=== PATIENT | female | born 1940 | race Caucasian/White ===

== ENCOUNTER → 2018-12-12 | Outpatient (CLI) | payer OTHER ==
[~2018-12-12] MED LIST: ALLOPURINOL; ALLOPURINOL 30300 M1; ATENOLOL 100MG100 M2; ATENOLOL PO; CALCITRIOL0.25 MCG PO; CENTRUM SILVER1 EAC4 PO; COUMADIN 4 MG TA4 M1; FOLIC ACID0.8 MG PO; FUROSEMIDE; FUROSEMIDE 40 M40 M1 PO; HYDROCODONE-AP1 EAC6 PO; K-DUR 20 MEQ T20 MEQ PO; KEFLEX500 MG PO; LIPITOR10 MG PO; NORCO 5-325 TA1 EAC1 PO; NORCO 5-325 TA1 EACH OR; NORCO 5-325 TA1 EACH PO; ONDANSETRON HCL4 M2 PO; PERCOCET 5-3251 EACH PO; PREDNISONE; PRILOSEC 20 MG20 MG PO; VASOTEC; VERAPAMIL E.R240 M1 PO; VICODIN; VITAMIN D3400 UNIT PO; VITAMINC500 PO; ZOLOFT50 MG PO; [UNRECOGNIZED DRUG - CODE]
== END ==
LOC: M.RAD 14:48
DX: M47.816 Spondylosis without myelopathy or radiculopathy, lumbar region (principal); M48.061 Spinal stenosis, lumbar region without neurogenic claudication; M25.78 Osteophyte, vertebrae; W19.XXXA Unspecified fall, initial encounter; Y93.89 Activity, other specified; Y92.89 Other specified places as the place of occurrence of the external cause; Y99.8 Other external cause status

== ENCOUNTER → 2019-03-03 | Outpatient (CLI) | payer OTHER | LOC: M.MRI 16:09 | DX: M47.816 Spondylosis without myelopathy or radiculopathy, lumbar region (principal); M48.061 Spinal stenosis, lumbar region without neurogenic claudication; M25.78 Osteophyte, vertebrae; M51.26 Other intervertebral disc displacement, lumbar region; M51.27 Other intervertebral disc displacement, lumbosacral region ==

== ENCOUNTER → 2019-03-11 | Outpatient (CLI) | payer OTHER | LOC: M.RAD 15:20 | DX: J43.9 Emphysema, unspecified (principal); N83.8 Other noninflammatory disorders of ovary, fallopian tube and broad ligament; M54.42 Lumbago with sciatica, left side; M54.41 Lumbago with sciatica, right side; G89.29 Other chronic pain ==

== ENCOUNTER → 2019-03-13 | Outpatient (CLI) | payer OTHER | LOC: M.ULTRA 03-12 15:00 | DX: R19.00 Intra-abdominal and pelvic swelling, mass and lump, unspecified site (principal) ==

== ENCOUNTER → 2019-05-27 | Outpatient (CLI) | payer OTHER ==
[2019-05-27 15:01] LABS: ABSOLUTE BASOPHILS 0.1 thou/uL (0.0-0.2); ABSOLUTE EOSINOPHILS 0.1 thou/uL (0.0-0.7); ABSOLUTE LYMPHOCYTES 1.9 thou/uL (0.8-5.3); ABSOLUTE MONOCYTES 0.6 thou/uL (0.0-1.2); ABSOLUTE NEUTROPHILS 6.4 thou/uL (1.6-8.1); BASOPHILS 1.2 %; EOSINOPHILS 0.8 %; HEMATOCRIT 33.3 % (37.0-47.0); HEMOGLOBIN 11.3 gm/dL (12.0-15.0); LYMPHOCYTES 20.4 %; MCH 31.2 pg (26.0-34.0); MCHC 33.9 g/dL (28.0-37.0); MCV 91.9 fL (80.0-100.0); MONOCYTES 6.8 %; NUCLEATED RBCS 0 /100WBC; PLATELET COUNT* 221 thou/uL (150-400); POLYS 70.8 %; RBC 3.62 mil/uL (4.20-5.00); RDW-CV 14.5 % (10.5-14.5); WBC 9.1 thou/uL (4.0-11.0)
[2019-05-27 15:17] LABS: ALBUMIN 3.7 g/dL (3.4-5.0); CALCIUM 8.3 mg/dL (8.5-10.1); CREATININE 1.8 mg/dL (0.6-1.3); POTASSIUM 4.1 mmol/L (3.5-5.1); TOTAL BILIRUBIN 0.3 mg/dL (<0.1-1.0); TOTAL PROTEIN 6.5 g/dL (6.4-8.2)
[2019-05-27 15:31] LABS: CALCIUM 8.1 mg/dL (8.5-10.1); CREATININE 1.8 mg/dL (0.6-1.3); PHOSPHORUS* 3.8 mg/dL (2.5-4.9)
== END ==
LOC: M.LAB 14:41
PROVIDERS: Internal Medicine
DX: R79.9 Abnormal finding of blood chemistry, unspecified (principal)

== ENCOUNTER 2019-06-15 23:37 | Inpatient (IN) | payer OTHER ==
[~2019-06-15] VITALS: Ht 170.2 cm; Wt 93.4 kg
[~2019-06-15 23:37] MED LIST changes: -ALLOPURINOL 30300 M1; +ALLOPURINOL 30300 M1 PO; -ATENOLOL 100MG100 M2; +ATENOLOL 100MG100 M2 PO; -FUROSEMIDE; +LASIX 40 MG TAB40 MG PO; +NORCO 5-325 TA1 EAC2 PO; -NORCO 5-325 TA1 EACH PO; -PRILOSEC 20 MG20 MG PO; +PRILOSEC OTC20 MG PO; +SERTRALINE HCL50 MG PO; +VITAMIN D32000 UNI2 PO; -VITAMIN D3400 UNIT PO; -ZOLOFT50 MG PO
[2019-06-15 23:45] VITALS: BP 231/88
[2019-06-16 01:37] LABS: ABSOLUTE BASOPHILS 0.1 thou/uL (0.0-0.2); ABSOLUTE EOSINOPHILS 0.1 thou/uL (0.0-0.7); ABSOLUTE LYMPHOCYTES 2.1 thou/uL (0.8-5.3); ABSOLUTE MONOCYTES 0.8 thou/uL (0.0-1.2); ABSOLUTE NEUTROPHILS 6.6 thou/uL (1.6-8.1); BASOPHILS 0.8 %; EOSINOPHILS 0.7 %; HEMATOCRIT 33.3 % (37.0-47.0); HEMOGLOBIN 11.1 gm/dL (12.0-15.0); LYMPHOCYTES 21.5 %; MCH 31.1 pg (26.0-34.0); MCHC 33.4 g/dL (28.0-37.0); MCV 93.2 fL (80.0-100.0); MONOCYTES 8.3 %; MPV 9.3 fl. (7.2-11.1); NUCLEATED RBCS 0 /100WBC; PLATELET COUNT* 210 thou/uL (150-400); POLYS 68.7 %; RBC 3.58 mil/uL (4.20-5.00); WBC 9.6 thou/uL (4.0-11.0)
[2019-06-16 02:14] LABS: CALCIUM 8.4 mg/dL (8.5-10.1); CREATININE 1.5 mg/dL (0.6-1.3); POTASSIUM 5.3 mmol/L (3.5-5.1)
[2019-06-16 02:20] LABS: ALBUMIN 3.7 g/dL (3.4-5.0); MAGNESIUM 1.3 mg/dL (1.8-2.4); TOTAL BILIRUBIN 0.3 mg/dL (<0.1-1.0); TOTAL PROTEIN 6.7 g/dL (6.4-8.2)
[2019-06-16 03:09] LABS: URINE BILIRUBIN NEGATIVE (Negative); URINE BLOOD TRACE (Negative); URINE CLARITY CLEAR; URINE COLOR YELLOW; URINE GLUCOSE-RANDOM NEGATIVE (Negative); URINE KETONES NEGATIVE (Negative); URINE PROTEIN NEGATIVE (Negative); URINE UROBILINOGEN 0.2 E.U./dl (0.2-1.0)
[2019-06-16 03:10] LABS: URINE LEUKOCYTES-REFLEX 3+ (Negative); URINE NITRITE-REFLEX POSITIVE (Negative)
[2019-06-16 03:36] LABS: SQUAMOUS 4-10 Moderate /LPF (0-3)
[2019-06-16 03:37] LABS: BACTERIA-REFLEX >30 Many /HPF (None Seen); COARSE GRANULAR CASTS 0-3 Few /LPF (None Seen); CRYSTALS None Seen /LPF (None Seen); URINE RBC 3-10 Few /HPF (0-2); URINE WBC-REFLEX >25 Many /HPF (0-5)
[2019-06-16 07:13] VITALS: BP 177/60
--- NOTE | 2019-06-16 08:43 | NUR ---
SPOKE TO DR IRELAND, REGARDING PTS BP, ORDERS RECEIVED, CONTINUE FLUIDS DIRECTED, PT TO BE SEEN BY DR SALDAÑA TODAY
--- NOTE | 2019-06-16 08:51 | NUR ---
TERESA NOTIFIED UPON PT RETURN FROM CT. PT WAS NOT CONNECTED TO MONITOR SHE WAS NOT PRIOR TO CT
[2019-06-16 09:12] VITALS: BP 177/60
[2019-06-16 09:30] VITALS: BP 190/69
--- NOTE | 2019-06-16 11:45 | EKG ---
[place] [address] ELECTROCARDIOGRAM REPORT Name: GEOVANY LOW Room: [address] IN .R.#: [id number] Admission: 06/16/19 Attend Phys: Bryant Gordillo, Discharge: Date of : 38 Date of Service: 06/16/19 0403 Report #: [id number] THIS REPORT FOR: //name// [facility] ED Test Date: 2019-06-16 Test Time: 04:03:10 Pat Name: GEOVANY LOW Department: Room: [facility] Gender: F Card Cleaner: MR : 1940 Requested By: Karly Vásquez Order Number: [id number] MD: Alexandro oRdriguez Measurements Intervals [place] Rate: 74 P: 90 TN: 144 QRS: 90 QRSD: 80 T: 51 QT: 351 QTc: 390 Interpretive Statements Sinus rhythm Consecutive pac's Borderline right axis deviation Compared to ECG 11/02/2010 20:23:56 Atrial premature complex(es) now present Electronically Signed On 06-16-2019 11:44:17 PLAYGROUND AIDE by Alexandro Rodriguez [email or web address] <ELECTRONICALLY SIGNED> By: Alexandro Rodriguez MD, [facility] 06/16/19 1144 0403 0403 Alexandro Rodriguez MD, [facility] /EPI
--- NOTE | 2019-06-16 15:17 | NUR ---
ASSESSMENT COMPLETE. PT ALERT AND ORIENTED X4, FORGETFUL AT TIMES. PT ADMITTED WITH UTI, DIARRHEA AND HYPOMAGNESIUM. MAG REPLACED IV, NOW 1.8. IV ROCEPHIN STARTED FOR UTI. GI CONSULT FOR DIARRHEA. ECHO ORDERED. PATIENT HAS HTN, PRN HYDRALAZINE GIVEN NEEDED, PROVIDER AWARE. PT IS ON ROOM AIR, VSS. IV FLUIDS INFUSING. PT UP IN CHAIR MOST OF THE DAY. TOLERATING CLEAR LIQUIDS, REQUESTING REAL FOOD. PT HAS NO OTHER CONCERNS AT THIS TIME. FALL RISK, BED/CHAIR ALARM ON. CALL LIGHT WITHIN REACH, WILL CONTINUE PLAN OF CARE
[2019-06-16 15:30] VITALS: BP 166/56
--- NOTE | 2019-06-16 16:05 | NUR ---
CM ASSESSMENT: PT LIVES ALONE. SHE IS INDEPENDENT WITH ALL ADLS. SHE USES A WALKER. DOES HER OWN CLEANING,COOKING. SHE PAYS A FRIEND TO TAKE HER TO THE STORE ETC. DENIES NEED FOR HH. CM WILL CONTINUE TO FOLLOW
[2019-06-16 22:52] VITALS: BP 166/67
--- NOTE | 2019-06-17 05:06 | NUR ---
PATIENT SLEPT WELL DURING THIS SHIFT. PT USES CALL LIGHT APPROPRIATELY FOR ASSISTANCE TO BATHROOM. PT UP WITH USE OF WALKER AND CLOSE STANDBY. PT VOIDS YELLOW URINE. PT SAT IN CHAIR AND WATCHED TV DURING THE NIGHT. PT HAS SCHEDULED HYDROCODONE AT HS; DENIES PAIN THE REST OF THE SHIFT. FREQUENTLY USED ITEMS AND CALL LIGHT WITHIN REACH. SIDERAILS UPX3 AND BED ALARM ON. WILL CONTINUE TO MONITOR.
[2019-06-17 08:05] VITALS: BP 181/69
[2019-06-17] MEDS ORDERED: CEFDINIR300 MG PO (10:43)
[2019-06-17] MEDS ORDERED: NORVASC5 MG PO (10:44)
[2019-06-17] MEDS ORDERED: HYDROCHLOROTHIA25 M2 PO (10:45)
[2019-06-17 12:26] VITALS: BP 181/69
--- NOTE | 2019-06-17 14:58 | NUR ---
PATIENT DISCHARGED TO HOME. DISCHARGE PAPERS REVIEWED AND SIGNED. PATIENT REFUSED NEED FOR HOME HEALTH. PRESCRIPTIONS AND INFORMATION SHEETS GIVEN. PATIENT PACKED OWN BELONGINGS. PATIENT TAKEN BY WHEELCHAIR TO EXIT. LEFT WITH FRIEND.
--- NOTE | 2019-06-18 14:36 | 2DMMODE ---
[place] [address] 2 D/M-MODE ECHOCARDIOGRAM Name: MARANDAGEOVANY J Room: [address] IN .R.#: [id number] Admission: 06/16/19 Attend Phys: Bryant Gordillo, Discharge: 06/17/19 Date of : 38 Date of Service: 06/18/19 1435 Report #: [id number] THIS REPORT FOR: cc: Dutch Flanagan MD, David L. MD Liston, Michael J. MD [facility] ~ ADDENDUM APPROVED REPORT Study performed: 06/16/2019 14:56:18 EXAM: Comprehensive 2D, Doppler, and color-flow Echocardiogram Patient Location: In-Patient Room #: [facility] Status: routine BSA: 2.04 HR: 60 bpm BP: 190/69 mmHg Rhythm: NSR Other Information Study Quality: Good Indications Hypertension/HDD 2D Dimensions IVSd: 11.90 (7-11mm) LVDd: 44.70 mm PWd: 9.50 (7-11mm) Ascending Ao: 35.30 (22-36mm) LVDs: 21.80 (25-40mm) Aortic Root: 32.70 mm Volumes Left Atrial Volume (Systole) LA ESV Index: 32.90 mL/m2 Aortic Valve AO Peak Gr.: 12.00 mmHg AO Mean Gr.: 6.40 mmHg MEMO (VTI): 2.36 cm2 Left Ventricle The left ventricle is normal size. There is normal LV segmental wall motion. Mild concentric left ventricular [place] [address] 2 D/M-MODE ECHOCARDIOGRAM Name: MARANDAGEOVANY J Room: [address] IN .R.#: [id number] Admission: 06/16/19 Attend Phys: Bryant Gordillo, Discharge: 06/17/19 Date of : 38 Date of Service: 06/18/19 1435 Report #: [id number] ventricular systolic function is normal. LVEF is 60-65%. Transmitral Doppler flow pattern suggests restrictive physiology. Right Ventricle The right ventricle is normal size. The right ventricular systolic function is normal. Atria The left atrium size is normal. The right atrium size is normal. Aortic Valve The aortic valve is normal in structure. Mild aortic regurgitation. There is no aortic valvular stenosis. Mitral Valve The mitral valve is normal in structure. There is no mitral valve regurgitation noted. No evidence of mitral valve stenosis. Tricuspid Valve The tricuspid valve is normal in structure. Trace tricuspid regurgitation. Unable to assess PA pressure. Pulmonic Valve The pulmonary valve is normal in structure. There is no pulmonic valvular regurgitation. Great Vessels The aortic root is normal in size. IVC is normal in size and collapses >50% with inspiration. Pericardium There is no pericardial effusion. <Conclusion> The left ventricle is normal size. Mild concentric left ventricular hypertrophy. Left ventricular systolic function is normal. LVEF is 60-65%. Transmitral Doppler flow pattern suggests restrictive physiology. Mild aortic [place] [address] 2 D/M-MODE ECHOCARDIOGRAM Name: MARANDAGEOVANY Room: [address]#: [id number] Admission: 06/16/19 Attend Phys: Bryant Gordillo, Discharge: 06/17/19 Date of : 38 Date of Service: 06/18/19 1435 Report #: [id number] Trace tricuspid regurgitation. IVC is normal in size and collapses >50% with inspiration. <ELECTRONICALLY SIGNED> By: Grant Cantrell MD, FACC 06/18/19 143 34 34 Grant Cantrell MD, FACC /INF
== END 2019-06-17 14:40 | disposition home or self-care (01) | DRG 690 ==
LOC: M.ERS 23:37 → M.3W 06-16 04:52 → M.TBA-ER 06-16 04:52 → M.3W 06-16 09:07
PROVIDERS: Emergency Medicine; ADMIT Internal Medicine
DX: N30.00 Acute cystitis without hematuria (principal); I16.9 Hypertensive crisis, unspecified; A08.4 Viral intestinal infection, unspecified; K80.20 Calculus of gallbladder without cholecystitis without obstruction; I10 Essential (primary) hypertension; D64.9 Anemia, unspecified; M10.9 Gout, unspecified; R32 Unspecified urinary incontinence; Z96.651 Presence of right artificial knee joint; E83.42 Hypomagnesemia; R11.13 Vomiting of fecal matter; N83.201 Unspecified ovarian cyst, right side; M54.9 Dorsalgia, unspecified; G89.29 Other chronic pain; F17.210 Nicotine dependence, cigarettes, uncomplicated; K86.89 Other specified diseases of pancreas; N83.202 Unspecified ovarian cyst, left side; Z86.010 Personal history of colon polyps; Z79.899 Other long term (current) drug therapy; Z88.7 Allergy status to serum and vaccine; Z88.8 Allergy status to other drugs, medicaments and biological substances; Z72.89 Other problems related to lifestyle

== ENCOUNTER 2019-12-24 15:50 | Inpatient (IN) | payer OTHER ==
[~2019-12-24] VITALS: Ht 170.2 cm; Wt 93.4 kg
[~2019-12-24 15:50] MED LIST changes: +CEFDINIR300 MG PO; +HYDROCHLOROTHIA25 M2 PO; +NORVASC5 MG PO
[2019-12-24 16:03] VITALS: BP 213/90
[2019-12-24 16:29] LABS: ABSOLUTE EOSINOPHILS 0.1 thou/uL (0.0-0.7); ABSOLUTE LYMPHOCYTES 1.4 thou/uL (0.8-5.3); ABSOLUTE MONOCYTES 0.5 thou/uL (0.0-1.2); ABSOLUTE NEUTROPHILS 6.8 thou/uL (1.6-8.1); BASOPHILS 0.5 %; EOSINOPHILS 0.7 %; HEMATOCRIT 35.8 % (37.0-47.0); LYMPHOCYTES 16.2 %; MCH 30.7 pg (26.0-34.0); MCHC 33.5 g/dL (28.0-37.0); MCV 91.8 fL (80.0-100.0); MONOCYTES 5.3 %; MPV 8.7 fl. (7.2-11.1); NUCLEATED RBCS 0 /100WBC; PLATELET COUNT* 227 thou/uL (150-400); POLYS 77.3 %; RBC 3.89 mil/uL (4.20-5.00); RDW-CV 14.3 % (10.5-14.5); WBC 8.8 thou/uL (4.0-11.0)
[2019-12-24 16:33] LABS: CALCIUM 8.2 mg/dL (8.5-10.1); CREATININE 1.6 mg/dL (0.6-1.3); POTASSIUM 4.5 mmol/L (3.5-5.1)
[2019-12-24 16:38] LABS: ALBUMIN 3.8 g/dL (3.4-5.0); TOTAL BILIRUBIN 0.4 mg/dL (<0.1-1.0); TOTAL PROTEIN 6.9 g/dL (6.4-8.2)
[2019-12-24 16:41] LABS: APTT 26.7 Seconds (25.0-31.3); PROTIME 10.3 Seconds (9.20-11.50)
[2019-12-24 19:57] VITALS: BP 160/98
[2019-12-24 20:30] VITALS: BP 224/96
[2019-12-25] VITALS: BP 132/72
[2019-12-25 04:00] VITALS: BP 198/64
[2019-12-25 05:12] LABS: HEMOGLOBIN 10.4 gm/dL (12.0-15.0); MCHC 33.4 g/dL (28.0-37.0); MCV 92.6 fL (80.0-100.0); MPV 9.4 fl. (7.2-11.1); RBC 3.35 mil/uL (4.20-5.00); RDW-CV 13.8 % (10.5-14.5); WBC 7.8 thou/uL (4.0-11.0)
[2019-12-25 05:50] LABS: ALBUMIN 3.2 g/dL (3.4-5.0); CALCIUM 8.1 mg/dL (8.5-10.1); CREATININE 1.8 mg/dL (0.6-1.3); MAGNESIUM 1.4 mg/dL (1.8-2.4); POTASSIUM 4.7 mmol/L (3.5-5.1); TOTAL BILIRUBIN 0.3 mg/dL (<0.1-1.0); TOTAL PROTEIN 5.3 g/dL (6.4-8.2)
[2019-12-25 05:56] LABS: CHOLESTEROL 150 mg/dL (<200); HDL CHOLESTEROL 35 mg/dL (>40); LDL CHOLESTEROL 94 mg/dL (<100); TC:HDL 4.3 Ratio (Not establshd); TRIGLYCERIDE 105 mg/dL (<150); VLDL 21 mg/dL (<40)
[2019-12-25 05:57] LABS: SERUM ASSESSMENT Clear
[2019-12-25 08:16] VITALS: BP 200/86
--- NOTE | 2019-12-25 10:29 | EKG ---
[place] [address] ELECTROCARDIOGRAM REPORT Name: GEOVANY LOW Room: [address] ADM IN .R.#: [id number] Admission: 12/24/19 Attend Phys: Raven Patel, Discharge: Date of : 38 Date of Service: 12/24/19 1601 Report #: [id number] THIS REPORT FOR: //name// [facility] ED Test Date: 2019-12-24 Test Time: 16:01:17 Pat Name: GEOVANY LOW Department: Room: [facility] Gender: F Household Personal Assistant: DSL : 1940 Requested By: Arden Luacs Order Number: [id number] MD: Alexandro Rodriguez Measurements Intervals [place] Rate: 99 P: 70 NV: 147 QRS: 93 QRSD: 81 T: 52 QT: 341 QTc: 438 Interpretive Statements Sinus rhythm Consider right atrial enlargement Right axis deviation Baseline wander in lead(s) II,III,aVR,aVL,aVF,V6 Compared to ECG 06/16/2019 04:03:10 Heart rate has increased Electronically Signed On 12-25-2019 10:29:05 CDT by Alexandro Rodriguez [email or web address] <ELECTRONICALLY SIGNED> By: Alexandro Rodriguez MD, [facility] 12/25/19 1029 1601 1601 Alexandro Rodriguez MD, [facility] /EPI
[2019-12-25 12:47] VITALS: BP 193/91
--- NOTE | 2019-12-25 13:27 | 2DMMODE ---
[place] [address] 2 D/M-MODE ECHOCARDIOGRAM Name: MARANDAGEOVANY Nuvia Room: [address] IN .R.#: [id number] Admission: 12/24/19 Attend Phys: Raven Patel, Discharge: Date of : 38 Date of Service: 12/25/19 1326 Report #: [id number] THIS REPORT FOR: cc: Dutch Flanagan MD, David L. MD Holkins, John M. MD [facility] ~ APPROVED REPORT Study performed: 12/25/2019 11:42:44 EXAM: Comprehensive 2D, Doppler, and color-flow Echocardiogram Patient Location: In-Patient Room #: 232 Status: routine BSA: 2.02 HR: 69 bpm BP: 200/86 mmHg Rhythm: NSR Other Information Study Quality: Good Indications CVA/TIA Echo Enhancing Agent Indication: Rule out Shunt Agent(s) / Amount(s) Used: Agitated Saline 10 cc 2D Dimensions IVSd: 12.02 (7-11mm) LVOT Diam: 18.59 (18-24mm) LVDd: 42.38 mm PWd: 10.45 (7-11mm) Ascending Ao: 36.21 (22-36mm) LVDs: 22.05 (25-40mm) Aortic Root: 31.99 mm Volumes Left Atrial Volume (Systole) LA ESV Index: 30.50 mL/m2 Aortic Valve AoV Peak Huan.: 1.50 m/s AO Peak Gr.: 8.97 mmHg LVOT Max P.81 mmHg AO Mean Gr.: 4.76 mmHg LVOT Mean P.17 [place] [address] 2 D/M-MODE ECHOCARDIOGRAM Name: GEOVANY LOW Room: [address] IN .R.#: [id number] Admission: 12/24/19 Attend Phys: Raven Patel, Discharge: Date of : 38 Date of Service: 12/25/19 1326 Report #: [id number] LVOT Max V: 1.10 m/s AO V2 VTI: 28.43 cm LVOT Mean V: 0.67 m/s MEMO (VTI): 2.25 cm2 LVOT V1 VTI: 23.53 cm Mitral Valve E/A Ratio: 1.84 MV Decel. Time: 169.90 ms MV E Max Huan.: 1.26 m/s MV PHT: 49.27 ms MVA (PHT): 4.47 cm2 TDI E/Lateral E': 11.45 E/Medial E': 10.50 Medial E' Huan.: 0.12 m/s Lateral E' Huan.: 0.11 m/s Pulmonary Valve PV Peak Huan.: 1.03 m/s PV Peak Gr.: 4.22 mmHg Left Ventricle The left ventricle is normal size. There is normal LV segmental wall motion. There is normal left ventricular wall thickness. Left ventricular systolic function is normal. The left ventricular ejection fraction is within the normal range. LVEF is 60-65%. Grade IV - fixed restrictive diastolic dysfunction. Right Ventricle The right ventricle is normal size. The right ventricular systolic function is normal. Atria The left atrium size is normal. The interatrial septum is intact with no evidence for an atrial septal defect. The right atrium size is normal. Aortic Valve Mild aortic valve sclerosis. Mild aortic regurgitation. There is no aortic valvular stenosis. Mitral Valve The mitral valve is normal in structure. Trace mitral regurgitation. No evidence of mitral valve stenosis. Tricuspid Valve The tricuspid valve is normal in structure. Trace tricuspid regurgitation. Unable [place] [address] 2 D/M-MODE ECHOCARDIOGRAM Name: GEOVANY LOW Room: [address] IN ..#: [id number] Admission: 12/24/19 Attend Phys: Raven Patel, Discharge: Date of : 38 Date of Service: 12/25/19 1326 Report #: [id number] Pulmonic Valve The pulmonary valve is normal in structure. There is no pulmonic valvular regurgitation. Great Vessels The aortic root is normal in size. IVC is normal in size and collapses >50% with inspiration. Pericardium There is no pericardial effusion. <Conclusion> The left ventricle is normal size. There is normal left ventricular wall thickness. Left ventricular systolic function is normal. The left ventricular ejection fraction is within the normal range. LVEF is 60-65%. The right ventricle is normal size. The left atrium size is normal. Mild aortic valve sclerosis. Mild aortic regurgitation. There is no aortic valvular stenosis. The mitral valve is normal in structure. The tricuspid valve is normal in structure. IVC is normal in size and collapses >50% with inspiration. There is no pericardial effusion. There is normal LV segmental wall motion. The interatrial septum is intact with no evidence for an atrial septal defect. <ELECTRONICALLY SIGNED> By: Alexandro Rodriguez MD, [facility] 12/25/19 1326 1326 1326 Alexandro Rodriguez MD, FACC /INF
[2019-12-25 18:17] VITALS: BP 179/69
[2019-12-25 19:58] VITALS: BP 219/70
[2019-12-26 05:07] LABS: GLYCOHEMOGLOBIN (HGB A1C) 5.1 % (4.8-5.6); LDL (DIRECT) CHOL 95 mg/dL (0-99)
[2019-12-26 09:01] VITALS: BP 190/110
[2019-12-26] MEDS ORDERED: ELIQUIS5 MG PO (09:27)
[2019-12-26] MEDS ORDERED: LISINOPRIL20 MG PO (09:27)
[2019-12-26] MEDS ORDERED: LIPITOR 40 MG T40 M1 PO (09:27)
[2019-12-26 12:00] VITALS: BP 211/77
[2019-12-26 12:38] VITALS: BP 211/77
== END 2019-12-26 13:45 | disposition home health service (06) | DRG 65 ==
LOC: M.ERS 15:50 → M.TBA-ER 16:46 → M.2W 16:46
PROVIDERS: Family Medicine; Psychiatry & Neurology Neurology; ADMIT Internal Medicine; ATTEND Internal Medicine
DX: I63.9 Cerebral infarction, unspecified (principal); I16.1 Hypertensive emergency; M10.9 Gout, unspecified; I48.0 Paroxysmal atrial fibrillation; Z96.651 Presence of right artificial knee joint; Z20.828 Contact with and (suspected) exposure to other viral communicable diseases; Z79.899 Other long term (current) drug therapy; Z88.7 Allergy status to serum and vaccine; Z88.8 Allergy status to other drugs, medicaments and biological substances; Z87.891 Personal history of nicotine dependence; I12.9 Hypertensive chronic kidney disease with stage 1 through stage 4 chronic kidney disease, or unspecified chronic kidney disease; N18.3 Chronic kidney disease, stage 3 (moderate)

== ENCOUNTER 2020-04-27 15:43 | Emergency (ER) | payer OTHER ==
[~2020-04-27] VITALS: Ht 170.2 cm; Wt 90.7 kg
[~2020-04-27 15:43] MED LIST changes: +ELIQUIS5 MG PO; +LIPITOR 40 MG T40 M1 PO; +LISINOPRIL20 MG PO
[2020-04-27 16:15] LABS: URINE BILIRUBIN NEGATIVE (Negative); URINE BLOOD NEGATIVE (Negative); URINE CLARITY CLEAR; URINE COLOR YELLOW; URINE GLUCOSE-RANDOM NEGATIVE (Negative); URINE KETONES NEGATIVE (Negative); URINE LEUKOCYTES-REFLEX 1+ (Negative); URINE PROTEIN TRACE (Negative); URINE UROBILINOGEN 0.2 E.U./dl (0.2-1.0)
[2020-04-27 16:17] LABS: URINE NITRITE-REFLEX POSITIVE (Negative)
[2020-04-27 16:23] LABS: BACTERIA-REFLEX >30 Many /HPF (None Seen); MUCUS None Seen strn/LPF (None Seen); SQUAMOUS >10 Many /LPF (0-3)
[2020-04-27 16:24] LABS: CASTS None Seen /LPF (None Seen); CRYSTALS None Seen /LPF (None Seen); WBC CLUMPS Few (None Seen)
[2020-04-27 16:25] LABS: URINE RBC None Seen /HPF (0-2)
[2020-04-27 16:33] LABS: ABSOLUTE BASOPHILS 0.1 thou/uL (0.0-0.2); ABSOLUTE LYMPHOCYTES 1.4 thou/uL (0.8-5.3); ABSOLUTE MONOCYTES 0.5 thou/uL (0.0-1.2); ABSOLUTE NEUTROPHILS 5.8 thou/uL (1.6-8.1); BASOPHILS 0.8 %; EOSINOPHILS 0.6 %; HEMATOCRIT 33.8 % (37.0-47.0); HEMOGLOBIN 11.1 gm/dL (12.0-15.0); LYMPHOCYTES 17.6 %; MCH 30.7 pg (26.0-34.0); MCHC 32.7 g/dL (28.0-37.0); MCV 93.8 fL (80.0-100.0); MONOCYTES 5.9 %; MPV 9.2 fl. (7.2-11.1); NUCLEATED RBCS 0 /100WBC; PLATELET COUNT* 185 thou/uL (150-400); POLYS 75.1 %; RDW-CV 14.3 % (10.5-14.5); WBC 7.7 thou/uL (4.0-11.0)
[2020-04-27 16:43] LABS: CALCIUM 8.4 mg/dL (8.5-10.1); POTASSIUM 4.8 mmol/L (3.5-5.1)
[2020-04-27 16:53] LABS: ALBUMIN 3.7 g/dL (3.4-5.0); TOTAL BILIRUBIN 0.2 mg/dL (<0.1-1.0); TOTAL PROTEIN 6.5 g/dL (6.4-8.2)
[2020-04-27] MEDS ORDERED: KEFLEX500 M1 PO (18:24)
[2020-04-27 18:56] VITALS: BP 180/59
--- NOTE | 2020-04-28 16:23 | EKG ---
[place] [address] ELECTROCARDIOGRAM REPORT Name: GEOVANY LOW Room: [facility]#: [id number] Admission: 04/27/20 Attend Phys: Discharge: 04/27/20 Date of : 38 Date of Service: 04/27/20 1618 Report #: [id number] THIS REPORT FOR: //name// [facility] ED Test Date: 2020-04-27 Test Time: 16:18:03 Pat Name: GEOVANY LOW Department: Room: Gender: Shop And Alteration Tailor: TDS : 1940 Requested By: Chandana Jacques Order Number: [id number] MD: Grant Cantrell Measurements Intervals [place] Rate: 73 P: 95 [place]: 157 QRS: 81 QRSD: 80 T: 44 QT: 362 QTc: 399 Interpretive Statements Sinus rhythm Atrial premature complex Borderline right axis deviation Compared to ECG 12/24/2019 16:01:17 Atrial premature complex(es) now present Electronically Signed On 04-28-2020 16:23:05 SEATING CAPTAIN by Grant Cantrell [email or web address] <ELECTRONICALLY SIGNED> By: Grant Cantrell MD, FACC 04/28/20 1623 1618 1618 Grant Cantrell MD, FACC /EPI
== END 2020-04-27 18:57 | disposition home or self-care (01) ==
LOC: M.ERS 15:43
PROVIDERS: Emergency Medicine Emergency Medical Services
DX: N39.0 Urinary tract infection, site not specified (principal); Z20.828 Contact with and (suspected) exposure to other viral communicable diseases; M10.9 Gout, unspecified; Z88.7 Allergy status to serum and vaccine; Z88.8 Allergy status to other drugs, medicaments and biological substances; Z79.899 Other long term (current) drug therapy; Z98.890 Other specified postprocedural states; Z96.651 Presence of right artificial knee joint

== ENCOUNTER 2020-11-11 23:19 | Inpatient (IN) | payer OTHER ==
[~2020-11-11] VITALS: Ht 170.2 cm; Wt 77.1 kg
--- NOTE | ~2020-11-11 | PROC ---
[address] [address] PROCEDURE REPORT Name: GEOVANY LOW Room: [address] IN M.R.#: [id number] Admission: 11/12/20 Attend Phys: Luigi Preciado Discharge: 11/15/20 Date of : 38 Report #: [id number] THIS REPORT FOR: cc: Lissette Allen Tammy RNP [facility],Medical Records Staff ~ For GI report, please see the Provation report in Perceptive 7 content. By: 1317Medical Records Staff OPAL /ANNETTE
[~2020-11-11 23:19] MED LIST changes: +KEFLEX500 M1 PO
[2020-11-11 23:24] VITALS: BP 219/81
[2020-11-12 00:35] LABS: BE -8.2 mmol/L (-2 to +3); PCO2 34.4 mmHg (35.0-45.0); PO2 79.8 mmHg (75.0-100.0); pH 7.314 (7.340-7.450)
[2020-11-12 01:17] LABS: ABSOLUTE BASOPHILS 0.1 thou/uL (0.0-0.2); ABSOLUTE LYMPHOCYTES 1.4 thou/uL (0.8-5.3); ABSOLUTE MONOCYTES 0.4 thou/uL (0.0-1.2); ABSOLUTE NEUTROPHILS 7.1 thou/uL (1.6-8.1); BASOPHILS 0.8 %; EOSINOPHILS 0.5 %; HEMATOCRIT 32.3 % (37.0-47.0); HEMOGLOBIN 10.8 gm/dL (12.0-15.0); LYMPHOCYTES 15.5 %; MCH 31.8 pg (26.0-34.0); MCHC 33.6 g/dL (28.0-37.0); MCV 94.9 fL (80.0-100.0); MONOCYTES 4.8 %; MPV 10.2 fl. (7.2-11.1); NUCLEATED RBCS 0 /100WBC; PLATELET COUNT* 178 thou/uL (150-400); POLYS 78.4 %; RDW-CV 15.2 % (10.5-14.5); WBC 9.1 thou/uL (4.0-11.0)
[2020-11-12 01:21] LABS: CALCIUM 7.8 mg/dL (8.5-10.1); CREATININE 2.9 mg/dL (0.6-1.3); POTASSIUM 4.3 mmol/L (3.5-5.1)
[2020-11-12 01:25] LABS: ALBUMIN 3.8 g/dL (3.4-5.0); TOTAL BILIRUBIN 0.5 mg/dL (<0.1-1.0); TOTAL PROTEIN 6.4 g/dL (6.4-8.2)
[2020-11-12 01:30] LABS: MAGNESIUM 0.9 mg/dL (1.8-2.4)
[2020-11-12 03:01] LABS: URINE BILIRUBIN NEGATIVE (Negative); URINE BLOOD NEGATIVE (Negative); URINE CLARITY CLEAR; URINE COLOR YELLOW; URINE GLUCOSE-RANDOM NEGATIVE (Negative); URINE KETONES NEGATIVE (Negative); URINE LEUKOCYTES-REFLEX 1+ (Negative); URINE NITRITE-REFLEX NEGATIVE (Negative); URINE PROTEIN NEGATIVE (Negative); URINE SPECIFIC GRAVITY 1.015 (1.005-1.030); URINE UROBILINOGEN 0.2 E.U./dl (0.2-1.0)
[2020-11-12 04:20] LABS: CASTS None Seen /LPF (None Seen); SQUAMOUS 4-10 Moderate /LPF (0-3)
[2020-11-12 04:21] LABS: BACTERIA-REFLEX >30 Many /HPF (None Seen); CRYSTALS None Seen /LPF (None Seen); URINE RBC 0-2 Rare /HPF (0-2)
[2020-11-12 06:58] VITALS: BP 188/78
--- NOTE | 2020-11-12 07:01 | NUR ---
PATIENT PULLED OUT IV. UNABLE TO START IV. REPORTED TO TRAVIS HOUSER.
--- NOTE | 2020-11-12 08:31 | NUR ---
PT JERKING ARM AWAY WHILE THIS RN WAS ATTEMPTING TO START IV. EDUCATION ON NEED FOR ACCESS PROVIDED BUT PT STILL REFUSES AT THIS TIME. WILL ATTEMPT LATER AND RE-EDUCATE.
[2020-11-12 10:50] LABS: ABSOLUTE BASOPHILS 0.1 thou/uL (0.0-0.2); ABSOLUTE EOSINOPHILS 0.1 thou/uL (0.0-0.7); ABSOLUTE LYMPHOCYTES 1.5 thou/uL (0.8-5.3); ABSOLUTE MONOCYTES 0.7 thou/uL (0.0-1.2); ABSOLUTE NEUTROPHILS 7.6 thou/uL (1.6-8.1); BASOPHILS 0.7 %; EOSINOPHILS 0.6 %; HEMATOCRIT 34.3 % (37.0-47.0); HEMOGLOBIN 11.4 gm/dL (12.0-15.0); LYMPHOCYTES 15.3 %; MCH 31.9 pg (26.0-34.0); MCHC 33.4 g/dL (28.0-37.0); MCV 95.4 fL (80.0-100.0); MONOCYTES 7.4 %; MPV 9.9 fl. (7.2-11.1); NUCLEATED RBCS 0 /100WBC; PLATELET COUNT* 167 thou/uL (150-400); RBC 3.59 mil/uL (4.20-5.00)
[2020-11-12 10:58] LABS: CALCIUM 8.4 mg/dL (8.5-10.1); CREATININE 2.5 mg/dL (0.6-1.3)
[2020-11-12 10:59] LABS: POTASSIUM 4.6 mmol/L (3.5-5.1)
[2020-11-12 11:01] VITALS: BP 197/74
--- NOTE | 2020-11-12 11:04 | EKG ---
[place] [address] ELECTROCARDIOGRAM REPORT Name: GEOVANY LOW Room: [place] [address] ADM IN .R.#: [id number] Admission: 11/12/20 Attend Phys: Mak Cabello Discharge: Date of : 38 Date of Service: 11/11/20 232 Report #: [id number] THIS REPORT FOR: //name// [facility] ED Test Date: 2020-11-11 Test Time: 23:22:15 Pat Name: GEOVANY LOW Department: Room: [facility] Gender: F Middle School Math Teacher: : 1940 Requested By: Bren York Order Number: [id number] MD: Alexandro Rodriguez Measurements Intervals [place] Rate: 76 P: 75 MO: 150 QRS: 91 QRSD: 88 T: 36 QT: 349 QTc: 393 Interpretive Statements Sinus rhythm Atrial premature complexes Right axis deviation Compared to ECG 04/27/2020 16:18:03 No significant changes Electronically Signed On 11-12-2020 11:04:11 CDT by Alexandro Rodriguez [email or web address] <ELECTRONICALLY SIGNED> By: Alexandro Rodriguez MD, [facility] 11/12/20 1104 2322 2322 Alexandro Rodriguez MD, [facility] /EPI
[2020-11-12 14:44] VITALS: BP 186/89
[2020-11-12 18:37] VITALS: BP 133/54
--- NOTE | 2020-11-12 18:38 | NUR ---
REVIEWING LABS, MAGNESIUM 0.9 LOW, STARTING MAGNESIUM AT THIS TIME.
--- NOTE | 2020-11-12 18:38 | NUR ---
ASSUMED PATIENT CARE AT A 1600.
[2020-11-12 19:45] VITALS: BP 168/78
[2020-11-13 00:22] VITALS: BP 135/74
[2020-11-13 04:08] LABS: HEMATOCRIT 30.5 % (37.0-47.0); HEMOGLOBIN 10.2 gm/dL (12.0-15.0); MCH 31.6 pg (26.0-34.0); MCHC 33.6 g/dL (28.0-37.0); MCV 94.1 fL (80.0-100.0); RBC 3.24 mil/uL (4.20-5.00); RDW-CV 15.2 % (10.5-14.5); WBC 8.9 thou/uL (4.0-11.0)
[2020-11-13 04:39] VITALS: BP 135/72
[2020-11-13 04:39] LABS: ALBUMIN 3.2 g/dL (3.4-5.0); CALCIUM 8.3 mg/dL (8.5-10.1); CREATININE 2.3 mg/dL (0.6-1.3); MAGNESIUM 3.3 mg/dL (1.8-2.4); POTASSIUM 4.2 mmol/L (3.5-5.1); TOTAL BILIRUBIN 0.5 mg/dL (<0.1-1.0); TOTAL PROTEIN 5.7 g/dL (6.4-8.2)
--- NOTE | 2020-11-13 06:53 | NUR ---
PT CONFUSED, LETHARGIC AT START OF SHIFT-AWAKE, MORE ALERT ORIENTED TO PERSON AND PLACE THIS MORNING. STATES SHE FEELS BETTER. HAS DENIED PAIN OR N/V THIS SHIFT. RFA IVF INFUSING PER PUMP, IV MAG REPLACED OVERNIGHT. TELE SB, SR. INCONTINENT URINE OVERNIGHT BUT REQUESTING BEDPAN THIS MORNING. TJ CARE GIVEN AND BARRIER CREAM APPLIED TO SL RED BOTTOM. AM LABS. ROOM AIR SAT 95%. PT TURNED AND REPOSITONED Q2 HOURS AND PRN OVERNIGHT FOR SKIN CARE AND COMFORT. TAKING PILL WHOLE WITH WATER THIS MORNING. GI CONSULT FOR PANCREAS HEAD MASS. IV ABX GIVEN ORDERED. CALL LITE IN EASY REACH, BED ALRM ON FOR SAFETY.
[2020-11-13 08:00] VITALS: BP 221/72
[2020-11-13 12:13] VITALS: BP 192/66
[2020-11-13 17:27] VITALS: BP 171/60
--- NOTE | 2020-11-13 18:45 | NUR ---
RECEIVED REPORT. ASSUMED CARE OF PT AROUND 0730. AM ASSESSMENT AND VITALS COMPLETED CHARTED. MEDS PER EMAR. PT REMAINED CONFUSED, FORGETFUL AND IMPULSIVE THIS SHIFT. PULLED HER IV OUT. SET BED ALARM OFF FREQUENTLY. INCONTINENT OF B&B. IS ABLE TO BE REDIRECTED SOME. PT WENT IN TO AFIB THIS SHIFT - DR ORTEGA MADE AWARE, NO NEW ORDERS RECEIVED. LATER PT MADE M/S STATUS. PT CURRENTLY IN BED SLEEING. FALL PRECAUTIONS IN PLACE. CALL LIGHT WITHIN REACH. HOURLY ROUND PERFORMED.
[2020-11-13 20:30] VITALS: BP 124/52
[2020-11-14 04:58] VITALS: BP 118/92
--- NOTE | 2020-11-14 05:21 | NUR ---
PT SLEPT ON AND OFF THIS SHIFT. ASSESSMENT DOCUMENTED. MEDS GIVEN PER -JUN. NO IV ACCESS THIS SHIFT. PT HITTING AND YELLING WHEN ATTEMPTED TO PLACE IV. DR NOTIFIED, ORDERS RECIEVED. PT EDUCATED. STILL UNABLE TO ACCESS IV. FALL PRECAUTIONS IN PLACE. WILL CONTINUE WITH PLAN OF CARE.
--- NOTE | 2020-11-14 06:56 | NUR ---
PT MORE ALERT THIS AM AND ALLOWED IV ACCESS. IV ABX INFUSING.
[2020-11-14 08:42] VITALS: BP 166/62
--- NOTE | 2020-11-14 09:44 | NUR ---
cm completed an assessment, s/w pt who indicated she lives alone, her son, Jerrod, has and she realizes on her neighbor for support. pt stated she could use some help with chores but does seemed to qualify for medicaid. cm will ask medassist to assess. pt otherwise stated she cannot afford private duty c/g as she brings upwards of $4k/mo. pt stated, "i dont want to leave my home." in regards to looking at other living options. pt uses walker to ambulate. pt denies hx with hh or snf. cm faxed referral to [facility]. [phone].
[2020-11-14 12:00] VITALS: BP 192/63
--- NOTE | 2020-11-14 14:51 | EKG ---
[place] [address] ELECTROCARDIOGRAM REPORT Name: GEOVANY LOW Room: [address] ADM IN M.R.#: [id number] Admission: 11/12/20 Attend Phys: Mak Cabello Discharge: Date of : 38 Date of Service: 11/12/20 0012 Report #: [id number] THIS REPORT FOR: //name// [facility] ED Test Date: 2020-11-12 Test Time: 00:12:29 Pat Name: GEOVANY LOW Department: Room: [address] Gender: F Vice President Underwriting: [facility] : 1940 Requested By: Bren York Order Number: [id number] Janelle MD: Dutch Armstrong Measurements Intervals [place] Rate: 77 P: 83 [place]: 151 QRS: 87 QRSD: 81 T: 45 QT: 359 QTc: 407 Interpretive Statements Sinus rhythm Atrial premature complex Borderline right axis deviation Compared to ECG 11/11/2020 23:22:15 No significant changes Electronically Signed On 11-14-2020 14:51:44 CDT by Dutch Armstrong [email or web address] <ELECTRONICALLY SIGNED> By: Dutch Armstrong MD, [facility] 11/14/20 1451 0012 0012 Dutch Armstrong MD, [facility] /EPI
--- NOTE | 2020-11-14 14:54 | EKG ---
[place] [address] ELECTROCARDIOGRAM REPORT Name: GEOVANY LOW Room: [address] ADM IN M.R.#: [id number] Admission: 11/12/20 Attend Phys: Mak Cabello Discharge: Date of : 38 Date of Service: 11/13/20 1308 Report #: [id number] THIS REPORT FOR: //name// [facility] Test Date: 2020-11-13 Test Time: 13:08:51 Pat Name: GEOVANY LOW Department: Room: [address] Gender: F Pattern Fitter: ILYA : 1940 Requested By: Mak Cabello Order Number: [id number] Reading MD: Dutch Armstrong Measurements Intervals [place] Rate: 77 P: [place]: QRS: 88 QRSD: 130 T: 62 QT: 378 QTc: 428 Interpretive Statements Atrial fibrillation poor r wave progression Nonspecific intraventricular conduction delay Compared to ECG 11/12/2020 00:12:29 Sinus rhythm no longer present Electronically Signed On 11-14-2020 14:54:43 CDT by Dutch Armstrong [email or web address] <ELECTRONICALLY SIGNED> By: Dutch Armstrong MD, [facility] 11/14/20 1454 1308 1308 Dutch Armstrong MD, [facility] /EPI
[2020-11-14 20:00] VITALS: BP 158/62
[2020-11-15 00:55] VITALS: BP 178/75
--- NOTE | 2020-11-15 06:33 | NUR ---
PT AWAKE AND ALERT WITH CONFUSION AND FORGETFULNESS. SHE KEPT TRYING TO GET OUT OF BED AND LEAVE OVERNIGHT. SHE WAS NOT COMBATIVE BUT ANXIOUS AND SOME AGITATION. SHE RECEIVED ALL MEDS SCHEDULED. NO APPARENT PAIN OR DISCOMFORT. INCONTINENT OF URINE. ENCOURAGED HYDRATION. WILL CONTINUE TO MONITOR.
[2020-11-15 08:00] VITALS: BP 176/56
--- NOTE | 2020-11-15 09:39 | NUR ---
cm sent hh referrals to the following: [facility] d[facility]t [facility] location. [facility] y[facility] cy[facility] ronan emeli tom
[2020-11-15] MEDS ORDERED: PROTONIX40 M2 PO (12:31)
[2020-11-15] MEDS ORDERED: CEFDINIR300 MG PO (12:34)
--- NOTE | 2020-11-15 12:50 | NUR ---
ONESIMO SPK WITH PT'S TAMMY/ NEXT TO KIN, BOZENA, TO SEE IF SHE KNEW PT'S INCOME AMOUNT AND OTHER FINANCIAL INFO IN ORDER FOR FERNY WITH MED ASSIST TO HELP PT WITH MEDICAID APPLICATION TO SEE IF PT QUALIFIED FOR IN HOME CARE [facility]. PER BOZENA, SHE DOES NOT KNOW PT FINANCIAL INFO OTHR THAN SHE WHERE SHE AGUILA. BOZENA INDICATED THE PT TRUST HER SO SHE WILL TRY TO ASSIST PT WITH GET HER PAPERWORK TOGETHER SO SHE CAN APPLY FOR MEDICAID. FERNY PROVIDED PT WITH MED ASSIST / MEDICAID NUMBER SO PT CAN CONTACT THEM ONCE SHE HAS HER INFORMATION TOGETHER. PT IS D/C HOME W/NO NEEDS PER DR. FINN.
[2020-11-15 15:04] VITALS: BP 176/56
--- NOTE | 2020-11-15 15:41 | NUR ---
PT DISCHARGED HOME WITH ALL BELONGINGS WITH WHEEL CHAIR VAN. SALINE LOCK REMOIVED HUB INTACT. PT UP WALKS WITH WALKER. PT IS FORGETFUL AND FORGETS THINGS.
--- NOTE | 2020-11-16 15:37 | CON ---
[address] [address] CONSULTATION Name: GEOVANY LOW Room: [address] IN .R.#: [id number] Admission: 11/12/20 Attend Phys: Luigi Preciado Discharge: 11/15/20 Date of : 38 Report #: [id number] THIS REPORT FOR: cc: Lissette Allen Tammy RNP Namin, Farid M. MD ~ DATE OF CONSULTATION: 11/13/2020 REASON FOR CONSULT: Intractable nausea, vomiting and abdominal pain. HISTORY OF PRESENT ILLNESS: This is an 80-year-old female with a 3-week history of nausea, vomiting and right-sided abdominal pain. The patient reports that every morning she was vomiting to the point that she was very weak. This prompted her to come to the emergency room. She denies any dysphagia or odynophagia. She also reports that her bowel habits are regular. She denies hematochezia or melena. PAST MEDICAL HISTORY: Significant for history of depression, gastroesophageal reflux disease, vitamin D deficiency, hypertension, gout, CVA, history of back surgery and right knee replacement. The patient also takes pain meds. ALLERGIES: No known drug allergy. MEDICATIONS: Please refer to MAR. SOCIAL HISTORY: The patient has remote history of alcohol use, but denies any alcohol or tobacco at this time. FAMILY HISTORY: Negative for GI malignancy. PHYSICAL EXAMINATION: VITAL SIGNS: Reveal blood pressure of 135/72, respirations 19, pulse 95, temperature 35.7. LABORATORY DATA: Liver enzymes are within normal limits with mild elevation of alkaline phosphatase to 154. Lipase is 194. WBC is 10.0 with hemoglobin of 11.4 and platelets of 167. IMAGING: CT of abdomen and pelvis was obtained. The patient has cholelithiasis without bile duct dilatation. There is a 3 cm cystic mass in the head of the pancreas, which is slightly larger than 15 months ago. She also has enlarged left ovarian and paraovarian cystic masses. ASSESSMENT AND PLAN: The patient with persistent nausea[place] [address] CONSULTATION Name: GEOVANY LOW Room: [address] IN .R.#: [id number] Admission: 11/12/20 Attend Phys: Luigi Preciado Discharge: 11/15/20 Date of : 38 Report #: [id number] right-sided abdominal pain, which has been ongoing for 3 weeks. This made the patient weak and prompted her to present to the emergency room. She had some electrolyte derangement, which she is getting replaced for. We will consider upper endoscopy to further evaluate her upper gastrointestinal symptoms. The patient is agreeable with plan. We will make further recommendation based on endoscopic evaluation results tomorrow. <ELECTRONICALLY SIGNED> By: Catina Winslow MD 11/16/20 1537 0804 1049Catina Winslow MD /dedra
--- NOTE | 2020-11-17 21:06 | PATH ---
[facility] [address] [place] [address] PATHOLOGY RPT PROCEDURE Name: GEOVANY LOW Room: [address] IN M.R.#: [id number] Admission: 11/12/20 Date of : 38 Discharge: 11/15/20 Report #: [id number] Path Case #: [id number] [facility] Accession Number: [id number] . 01 Material submitted: . gastrointestinal site - GASTRIC BIOPSY R/O GASTRITIS H. PYLORIE . 01 Clinical history: . EGD IN OR . 02 Diagnosis: Stomach "gastric biopsy": - Gastric oxyntic mucosa with mild chronic gastritis. - Negative for active inflammation, intestinal metaplasia, dysplasia and malignancy. - Negative for Helicobacter pylori. (MLK:chyna; 11/17/2020) QTP 11/17/2020 2030 Local . 02 Electronically signed: . Donnie Quiñones MD, Pathologist NPI- [id number] . 01 Gross description: . The specimen is received in formalin, labeled "Geovany Low and gastric biopsy r/o gastritis H. pylori". It consists of 3 wilson irregular soft tissue fragments ranging from 0.4-0.5 cm in greatest dimension. The specimen is entirely submitted between sponges in A1. (MRF; 11/15/2020) MFE/MFE 11/15/2020 1812 Local . 02 Microscopic: . Immunohistochemical stain results (properly controlled) H. pylori (A1) - Negative for organisms. (MLK:pit; 11/17/2020) . 02 Pathologist provided ICD-10: K29.50 . 02 CPT . 395643, [id number] Specimen Comment: A courtesy copy of this report has been sent to [phone] Specimen Comment: [phone], Specimen Comment: Report sent to , DR VANCE / DR BROOKS Performed at: [address] [facility] [place] [id number] [place] [address] PATHOLOGY RPT PROCEDURE Name: GEOVANY LOW Room: [address] M.R.#: [id number] Admission: 11/12/20 Date of : 38 Discharge: 11/15/20 Report #: [id number] Path Case #: [id number] MD Virgil Alexander MD Phone: [phone] Performed at: [address] [id number] MD Juan Antonio Delatorre MD Phone: [phone]
== END 2020-11-15 16:35 | disposition home health service (06) | DRG 391 ==
LOC: M.ERS 23:19 → M.2W 11-12 02:56 → M.TBA-ER 11-12 02:56 → M.2W 11-12 19:02
PROVIDERS: Internal Medicine; Personal Emergency Response Attendant; ADMIT Internal Medicine; ATTEND Internal Medicine
PROC: 0DB68ZX Excision of Stomach, Via Natural or Artificial Opening Endoscopic, Diagnostic (ICD-10-PCS; principal; 2020-11-14)
DX: K21.00 Gastro-esophageal reflux disease with esophagitis, without bleeding (principal); N17.0 Acute kidney failure with tubular necrosis; N39.0 Urinary tract infection, site not specified; N17.9 Acute kidney failure, unspecified; K29.70 Gastritis, unspecified, without bleeding; M10.9 Gout, unspecified; K80.20 Calculus of gallbladder without cholecystitis without obstruction; E83.42 Hypomagnesemia; K86.9 Disease of pancreas, unspecified; I12.9 Hypertensive chronic kidney disease with stage 1 through stage 4 chronic kidney disease, or unspecified chronic kidney disease; N18.9 Chronic kidney disease, unspecified; F32.9 Major depressive disorder, single episode, unspecified; K44.9 Diaphragmatic hernia without obstruction or gangrene; B96.20 Unspecified Escherichia coli [E. coli] as the cause of diseases classified elsewhere; Z96.651 Presence of right artificial knee joint; Z20.822 Contact with and (suspected) exposure to COVID-19; Z79.01 Long term (current) use of anticoagulants; Z86.73 Personal history of transient ischemic attack (TIA), and cerebral infarction without residual deficits; Z79.899 Other long term (current) drug therapy

== ENCOUNTER 2021-02-07 11:03 | Emergency (ER) | payer OTHER ==
[~2021-02-07] VITALS: Ht 167.6 cm; Wt 82.0 kg
[~2021-02-07 11:03] MED LIST changes: +PROTONIX40 M2 PO
[2021-02-07 11:32] LABS: ABSOLUTE BASOPHILS 0.1 thou/uL (0.0-0.2); ABSOLUTE EOSINOPHILS 0.1 thou/uL (0.0-0.7); ABSOLUTE LYMPHOCYTES 1.6 thou/uL (0.8-5.3); ABSOLUTE MONOCYTES 0.4 thou/uL (0.0-1.2); ABSOLUTE NEUTROPHILS 4.7 thou/uL (1.6-8.1); BASOPHILS 0.8 %; EOSINOPHILS 1.5 %; HEMATOCRIT 31.9 % (37.0-47.0); HEMOGLOBIN 10.3 gm/dL (12.0-15.0); LYMPHOCYTES 23.1 %; MCH 31.6 pg (26.0-34.0); MCHC 32.3 g/dL (28.0-37.0); MCV 97.8 fL (80.0-100.0); MONOCYTES 6.1 %; MPV 9.3 fl. (7.2-11.1); NUCLEATED RBCS 0 /100WBC; PLATELET COUNT* 190 thou/uL (150-400); POLYS 68.5 %; RBC 3.27 mil/uL (4.20-5.00); RDW-CV 14.5 % (10.5-14.5); WBC 6.8 thou/uL (4.0-11.0)
[2021-02-07 11:40] LABS: CALCIUM 7.9 mg/dL (8.5-10.1); POTASSIUM 5.1 mmol/L (3.5-5.1)
[2021-02-07 11:45] LABS: ALBUMIN 3.7 g/dL (3.4-5.0); TOTAL BILIRUBIN 0.4 mg/dL (<0.1-1.0); TOTAL PROTEIN 6.4 g/dL (6.4-8.2)
[2021-02-07 12:04] VITALS: BP 168/62
[2021-02-07] MEDS ORDERED: AUGMENTIN 875-1 EACH PO (12:40)
--- NOTE | 2021-02-07 13:38 | EKG ---
[place] [address] ELECTROCARDIOGRAM REPORT Name: CASANDRA LOWYN Nuvia Room: [facility]#: [id number] Admission: 02/07/21 Attend Phys: Discharge: Date of : 38 Date of Service: 02/07/21 1113 Report #: [id number] THIS REPORT FOR: //name// [facility] ED Test Date: 2021-02-07 Test Time: 11:13:18 Pat Name: GEOVANY LOW Department: Room: Gender: Commercial Administrator: : 1940 Requested By: Chandana Jacques Order Number: [id number] MD: Dutch Armstrong Measurements Intervals [place] Rate: 95 P: WA: QRS: 85 QRSD: 84 T: 43 QT: 341 QTc: 429 Interpretive Statements Atrial fibrillation Borderline right axis deviation Baseline wander in lead(s) V6 Compared to ECG 11/13/2020 13:08:51 Poor R-wave progression no longer present Electronically Signed On 02-07-2021 13:37:58 CDT by Dutch Armstrong [email or web address] <ELECTRONICALLY SIGNED> By: Dutch Armstrong MD, FACC 02/07/21 1337 1113 1113 Dutch Armstrong MD, FAC /EPI
== END 2021-02-07 12:35 | disposition home or self-care (01) ==
LOC: M.ERS 11:03
PROVIDERS: Emergency Medicine Emergency Medical Services
DX: I48.91 Unspecified atrial fibrillation (principal); R05.9 Cough, unspecified; Z79.899 Other long term (current) drug therapy; Z88.9 Allergy status to unspecified drugs, medicaments and biological substances; Z88.7 Allergy status to serum and vaccine